=== PATIENT | male | born 1965 ===

== ENCOUNTER 2019-12-24 15:24 | Emergency (ER) | payer OTHER ==
[~2019-12-24] VITALS: Ht 165.1 cm; Wt 105.5 kg
[2019-12-24 15:40] VITALS: BP 128/93
[2019-12-24] MEDS ORDERED: KETOROLAC 30 MG/1 ML IM ONE (16:00)
--- NOTE | 2019-12-24 16:01 | NUR ---
PT HERE WITH C/O LOWER BACK PAIN THAT RADIATES DOWN LEFT LEG, STATES FELL LAST NIGHT.
[2019-12-24] MEDS ORDERED: KETOROLAC 30 MG/1 ML ONE (16:07)
--- NOTE | 2019-12-24 16:11 | NUR ---
PT MEDICATED PER ORDERS.
--- NOTE | 2019-12-24 16:46 | NUR ---
Patient/Caregiver given discharge instructions and they have confirmed that they understand the instructions. Patient ambulatory with steady gait.
== END 2019-12-24 17:00 | disposition home or self-care (01) ==
LOC: ED 16:58
DX: G89.11 Acute pain due to trauma (principal); M54.5 Low back pain
CPT/HCPCS: 72110; 96372; 99283; J1885